=== PATIENT | female | born 1975 | race Caucasian/White ===

== ENCOUNTER 2021-04-24 11:49 | Emergency (ER) | payer OTHER ==
[2021-04-24 12:04] VITALS: BP 149/94; PULSE 87
[2021-04-24] MEDS ORDERED: LORazepam 2 MG/ML SDV IVPUSH ONE (12:23)
[2021-04-24] MEDS ORDERED: LORazepam 2 MG/ML SDV IM ONE (13:00)
[2021-04-24 13:13] LABS: ANION GAP 12.6 mEq/L (7-13); CHLORIDE,CL 106 mmol/L (98-107); SODIUM,NA 140 mmol/L (136-145)
== END 2021-04-24 15:20 | disposition home or self-care (01) ==
LOC: DL.ED 11:49
DX: G43.909 Migraine, unspecified, not intractable, without status migrainosus (principal); Z88.1 Allergy status to other antibiotic agents; Z88.8 Allergy status to other drugs, medicaments and biological substances
CPT/HCPCS: 36415; 70450; 70551; 80053; 83605; 83735; 84443; 85025; 85379; 85610; 93005; 96372; 99284; J2060; 93010; 99283

== ENCOUNTER 2022-09-11 08:56 | Emergency (ER) | payer OTHER ==
[2022-09-11] MEDS ORDERED: Sodium Chloride 0.9% 10 ML Syringe FLUSH PRN (09:44)
[2022-09-11] MEDS ORDERED: Dexamethasone 4 MG/ML SDV IVPUSH ONE (09:46)
[2022-09-11] MEDS ORDERED: Sodium Chloride 0.9% 1,000 ML IV ONE (09:46)
[2022-09-11] MEDS ORDERED: Ondansetron 4 MG/2 ML SDV IV ONE (09:46)
[2022-09-11] MEDS ORDERED: Iopamidol 612 MG/ML 100 ML Bottle IVPUSH ONE (09:47)
[2022-09-11 09:58] LABS: BASOPHILS PERCENT AUTO 0.2 % (0.0-1.0); EOSINOPHILS PERCENT AUTO 0.8 % (1.0-3.0); HEMATOCRIT 36.5 % (37.0-47.0); HEMOGLOBIN 12.5 g/dL (12.0-16.0); LYMPHOCYTES PERCENT AUTO 15.6 % (20.5-50.1); MEAN CORPUSCULAR HEMOGLOBIN 29.2 pg (27.0-34.0); MEAN CORPUSCULAR HGB CONC 34.2 g/dL (33.0-35.0); MEAN CORPUSCULAR VOLUME 85.3 fL (80-100); MONOCYTES PERCENT AUTO 6.6 % (2-8); NEUTROPHILS PERCENT AUTO 76.8 % (42.2-75.2); PLATELET COUNT,PLT 321 10^3/uL (150-450); RED BLOOD CELL COUNT 4.28 10^6/uL (4.2-5.4); WHITE BLOOD CELL COUNT,WBC 9.2 10^3/uL (5.0-10.0)
[2022-09-11 10:16] LABS: PROTHROMBIN TIME 10.1 SEC (9.0-12.0); PTT,PARTIAL THROMBOPLSTIN TIME 24.1 SEC (22.0-34.0)
[2022-09-11 10:17] LABS: A/G RATIO 1.1; ALBUMIN 3.5 g/dL (3.4-5.0); ANION GAP 10.9 mEq/L (7-13); BILIRUBIN TOTAL 0.3 mg/dL (0.2-1.0); BUN/CREATININE RATIO 22.9 (No establ ref range); CALCIUM 8.2 mg/dL (8.5-10.1); CREATININE 0.7 mg/dL (0.55-1.02); EST CRCL DRUG DOSING (CG) 93.01 mL/min; POTASSIUM,K 3.9 mmol/L (3.5-5.1); PROTEIN TOTAL,TP 6.8 g/dL (6.4-8.2)
[2022-09-11 11:11] LABS: APPEARANCE,URINE CLEAR (CLEAR); BILIRUBIN,URINE NEGATIVE (NEGATIVE); COLOR,URINE YELLOW (YELLOW); GLUCOSE,URINE NEGATIVE (NEGATIVE); KETONES,URINE NEGATIVE (NEGATIVE); LEUKOCYTE ESTERASE,URINE NEGATIVE (NEGATIVE); NITRITE,URINE NEGATIVE (NEGATIVE); OCCULT BLOOD,URINE NEGATIVE (NEGATIVE); PROTEIN,URINE NEGATIVE (NEGATIVE); UROBILINOGEN,URINE 0.2 mg/dL (0.2-1.0)
[2022-09-11 13:06] VITALS: BP 109/72; PULSE 58
== END 2022-09-11 12:19 | disposition home or self-care (01) ==
LOC: DL.ED 08:56
DX: S30.1XXA Contusion of abdominal wall, initial encounter (principal); M62.830 Muscle spasm of back; Z88.1 Allergy status to other antibiotic agents; Z88.8 Allergy status to other drugs, medicaments and biological substances; W18.30XA Fall on same level, unspecified, initial encounter
CPT/HCPCS: 36415; 72131; 74177; 80053; 81003; 84703; 85025; 85610; 85730; 96361; 96374; 96375; 96376; 99284; 99284-25; J1100; J2405; J3360; J3490; J7030; Q9967

== ENCOUNTER 2024-09-28 13:32 | Emergency (ER) | payer OTHER ==
[2024-09-28 13:44] VITALS: BP 142/86
[2024-09-28] MEDS: Ketorolac 30 MG/ML SDV IVPUSH ONE (14:03)
[2024-09-28] MEDS: Magnesium Sulfate 2 GM/50 mL 2 GM in Premix Bag 1 BAG IV ONE (14:04)
[2024-09-28] MEDS: Dexamethasone 4 MG/ML SDV IVPUSH ONE (14:04)
[2024-09-28] MEDS: Lactated Ringers 1,000 ML IV ONE (14:04)
[2024-09-28 15:38] VITALS: PULSE 57
== END 2024-09-28 15:53 | disposition home or self-care (01) ==
LOC: DL.ED 13:32
DX: G43.B0 Ophthalmoplegic migraine, not intractable (principal); Z88.8 Allergy status to other drugs, medicaments and biological substances; Z79.899 Other long term (current) drug therapy
CPT/HCPCS: 96365; 96375; 99283; 99283-25; J1100; J1885; J2765; J3475; J7120